=== PATIENT | female | born 1940 | race Caucasian/White ===

== ENCOUNTER 2018-06-12 08:41 | Inpatient (IN) | payer OTHER ==
[2018-06-12] MEDS ORDERED: NA CHLORIDE 0.9% 2,000 ML ONE (09:14)
[2018-06-12] MEDS ORDERED: CEFTRIAXONE/SWI 1gm 1 GM/10 ML SYR ONE (09:22)
[2018-06-12] MEDS ORDERED: AZITHROMYCIN 500 MG/250 ML BAG ONE (09:22)
[2018-06-12] MEDS ORDERED: ACETAMINOPHEN 500 MG TAB ONE (09:22)
--- NOTE | 2018-06-12 09:27 | RAD REPORT ---
EXAM DESCRIPTION: Tiki Single View06/12/2018 9:08 am CLINICAL HISTORY: Shortness of breath COMPARISON: 2016 FINDINGS: Mild bibasilar interstitial lung opacities are seen. Upper lobes appear clear. The heart is normal size IMPRESSION: Mild bibasilar interstitial lung opacities may indicate an atypical pneumonia
[2018-06-12 09:34] LABS: Absolute Lymphocytes (CBC) 0.6 K/uL (0.7-4.9); Absolute Monocytes 0.4 K/uL (0.1-1.3); Absolute Neutrophil 9.2 K/uL (1.8-8.0); Basophils % 0.1 % (0-1.3); Eosinophils % 0.2 % (0-4.4); Hematocrit 35.8 % (36.0-45.0); MCH 28.4 pg (27.0-35.0); MCV 83.4 fL (80-100); MPV 7.6 fL (7.6-11.3); Protime INR 1.35; RBC Red Blood Cell Count 4.29 M/uL (3.86-4.86)
[2018-06-12 09:47] LABS: Urine Blood 2+ (NEG); Urine Glucose NEGATIVE (NEG); Urine Protein 3+ (NEG); Urine Specific Gravity >1.030 (1.005-1.030)
[2018-06-12 09:55] LABS: Blood Morphology Comment NOT SEEN (NOT SEEN); Platelet Estimate ADEQ; Urine White Blood Cell Casts OK
[2018-06-12 10:06] LABS: Albumin 3.2 g/dL (3.4-5.0); Bilirubin Direct 0.1 mg/dL (0-0.2); Bilirubin Total 0.5 mg/dL (0.2-1.0); Potassium 3.6 mmol/L (3.5-5.1); Protein, Total 8.6 g/dL (6.4-8.2)
[2018-06-12 10:08] LABS: Troponin (Emerg Dept Use Only) 0.78 ng/mL (0.0-0.045)
[2018-06-12 10:11] LABS: Urine Bacteria LOADED /HPF (<20); Urine RBC 20-50 /HPF (NONE SEEN)
[2018-06-12 10:12] LABS: Urine Culture Reflex Order NOT NEEDED
[2018-06-12] MEDS ORDERED: ENOXAPARIN 80 MG/0.8 ML SQ ONE (10:29)
[2018-06-12] MEDS ORDERED: ASPIRIN 81 MG CHEWABLE TABLET ONE (10:29)
[2018-06-12] MEDS ORDERED: ONDANSETRON 4 MG/2 ML VIAL ONE (10:29)
--- NOTE | 2018-06-12 10:33 | EDPHYS ---
Physician Documentation [facility] Name: Roula Jefferson Age: 77 yrs Sex: Female : 1940 Arrival Date: 06/12/2018 Time: 08:45 Bed 6 Private MD: Chris Moeller V ED Physician Matthew Lewis HPI: 06/12 10:21 This 77 yrs old Female presents to ER via Wheelchair with complaints of Fever.jr8 10:21 The patient reports fever, with an emergency department temperature of 101.4 degrees jr8 Fahrenheit. Onset: The symptoms/episode began/occurred acutely, today. Modifying factors: there are no obvious modifying factors. Associated signs and symptoms: Pertinent positives: altered mental status,\E\. Severity of symptoms: At their worst the symptoms were moderate. The patient has not experienced similar symptoms in the past. The patient has not recently seen a physician. 10:29 Family stated that they noticed that patient was not making sense this morning. Checked jr8 her temperature because she felt hot in which they found that she had a temperature . Historical: - Allergies: 09:12 Sulfa (Sulfonamide Antibiotics); la1 09:12 PENICILLINS; la1 - PMHx: 09:12 Hypertension; la1 - Immunization history:: Pneumococcal vaccine is not up to date, Flu vaccine is not up to date. - Social history:: Smoking status: Patient/guardian denies using tobacco. - Ebola Screening: : No symptoms or risks identified at this time. ROS: 10:29 Constitutional: Positive for body aches, chills, fever. jr8 10:29 Neuro: Positive for altered mental status. 10:29 All other systems are negative. Exam: 10:29 Eyes: Pupils equal round and reactive to light, extra-ocular motions intact. Lids and jr8 lashes normal. Conjunctiva and sclera are non-icteric and not injected. Cornea within normal limits. Periorbital areas with no swelling, redness, or edema. ENT: Nares patent. No nasal discharge, no septal abnormalities noted. Tympanic membranes are normal and external auditory canals are clear. Oropharynx with no redness, swelling, or masses, exudates, or evidence of obstruction, uvula midline. Mucous membranes moist. Neck: Trachea midline, no thyromegaly or masses palpated, and no cervical lymphadenopathy. Supple, full range of motion without nuchal rigidity, or vertebral point tenderness. No Meningismus. Respiratory: Lungs have equal breath sounds bilaterally, clear to auscultation and percussion. No rales, rhonchi or wheezes noted. No increased work of breathing, no retractions or nasal flaring. Abdomen/GI: Soft, non-tender, with normal bowel sounds. No distension or tympany. No guarding or rebound. No evidence of tenderness throughout. Back: No spinal tenderness. No costovertebral tenderness. Full range of motion. Skin: Warm, dry with normal turgor. Normal color with no rashes, no lesions, and no evidence of cellulitis. MS/ Extremity: Pulses equal, no cyanosis. Neurovascular intact. Full, normal range of motion. Neuro: Awake and alert, GCS 15, oriented to person, place, time, and situation. Cranial nerves II-XII grossly intact. Motor strength 5/5 in all extremities. Sensory grossly intact. Cerebellar exam normal. Normal gait. No altered mentation at this time 10:29 Cardiovascular: Rate: tachycardic, Rhythm: regular, Pulses: Pulses are 2+ in right radial artery and left radial artery. Heart sounds: normal, Edema: is not appreciated. Vital Signs: 08:52 BP 148 / 82; Pulse 126; Resp 20 S; Temp 101.4(O); Pulse Ox 92% on R/A; Weight 79.38 kg bp (R); Height 5 ft. 5 in. (165.10 cm) (R); Pain 9/10; 09:25 BP 114 / 76; Pulse 120; Resp 18; Pulse Ox 95% on R/A; la1 10:20 BP 128 / 85; Pulse 106; Resp 20; Temp 98.9(O); Pulse Ox 95% on R/A; la1 10:55 BP 123 / 82; Pulse 104; Resp 16; Pulse Ox 96% on R/A; la1 11:01 Pulse Ox 89% on R/A; la1 12:06 BP 114 / 86; Pulse 93; Resp 16; Pulse Ox 98% on 2 lpm NC; la1 08:52 Body Mass Index 29.12 (79.38 kg, 165.10 cm) bp MDM: 08:46 Patient medically screened. jr8 10:29 Data reviewed: vital signs, nurses notes, lab test result(s), EKG, radiologic studies, [facility] plain films. Data interpreted: Pulse oximetry: on room air is 95 %. Interpretation: normal. Counseling: I had a detailed discussion with the patient and/or guardian regarding: the historical points, exam findings, and any diagnostic results supporting the discharge/admit diagnosis, lab results, radiology results, the need for further work-up and treatment in the hospital. 06/12 08:52 Order name: Urine Culture 06/12 08:52 Order name: Basic Metabolic Panel; Complete Time: 10:14 06/12 08:52 Order name: Blood Culture Adult (2) [facility] 06/12 08:52 Order name: CBC with Diff; Complete Time: 10:05 06/12 08:52 Order name: Lactate; Complete Time: 10:14 06/12 08:52 Order name: LFT's; Complete Time: 10:14 [facility] 06/12 08:52 Order name: Lipase; Complete Time: 10:14 [facility] 06/12 08:52 Order name: Procalcitonin; Complete Time: 10:05 06/12 08:52 Order name: Protime (+inr); Complete Time: 09:47 06/12 08:52 Order name: Troponin (emerg Dept Use Only); Complete Time: 10:14 [facility] 06/12 08:52 Order name: Urine Microscopic Only; Complete Time: 10:14 [facility] 06/12 08:52 Order name: Flu; Complete Time: 09:47 8 06/12 09:41 Order name: CBC Smear Scan; Complete Time: 10:05 EDMS 06/12 09:44 Order name: Urine Dipstick--Ancillary (enter results); Complete Time: 09:47 bd 06/12 08:52 Order name: Cath; Complete Time: 09:41 8 06/12 08:52 Order name: Chest Single View XRAY; Complete Time: 09:28 8 06/12 08:52 Order name: Accucheck; Complete Time: 09:05 8 06/12 08:52 Order name: Cardiac monitoring; Complete Time: 09:05 8 06/12 08:52 Order name: EKG - Nurse/Tech; Complete Time: 09:16 06/12 08:52 Order name: IV Saline Lock - Large Bore; Complete Time: 09:05 06/12 08:52 Order name: Labs collected and sent; Complete Time: 09:06/12 08:52 Order name: O2 Per Protocol; Complete Time: 09:06/12 11:07 Order name: CONS Physician Consult EDKS 06/12 08:52 Order name: O2 Sat Monitoring; Complete Time: 09:06/12 08:52 Order name: Urine Dipstick-Ancillary (obtain specimen); Complete Time: 09: Administered Medications: 09: Drug: NS 0.9% (30 ml/kg) 30 ml/kg Route: IV; Rate: bolus; Site: right forearm; la1 10:58 Follow up: IV Status: Completed infusion la1 09:25 Drug: Rocephin 1 grams Route: IV; Rate: calculated rate; Site: right forearm; la1 10:58 Follow up: IV Status: Completed infusion la1 09:25 Drug: Zithromax 500 mg Route: IVPB; Infused Over: 1 hrs; Site: right forearm; la1 10:58 Follow up: IV Status: Completed infusion la1 09:25 Drug: Tylenol 1000 mg Route: PO; la1 10:58 Follow up: Response: No adverse reaction; Temperature is decreased la1 10:29 Drug: Zofran 4 mg Route: IVP; Site: right forearm; la1 10:56 Follow up: Response: No adverse reaction; Nausea is decreased la1 10:31 Drug: Aspirin Chewable Tablet 324 mg Route: PO; la1 10:57 Follow up: Response: No adverse reaction la1 10:31 Drug: Lovenox 1 mg/kg Route: Sub-Q; Site: left lower abdomen; la1 10:56 Follow up: Response: No adverse reaction la1 Disposition: 06/12/18 10:32 Hospitalization ordered by Chris Moeller for Inpatient Admission. Preliminary diagnosis are Pneumonia due to other specified bacteria, Urinary tract infection, site not specified, Sepsis. - Bed requested for Telemetry/MedSurg (Inpatient). - Status is Inpatient Admission. la1 - Condition is Stable. - Problem is new. - Symptoms have improved. UTI on Admission? Yes Addendum: 06/20/2018 11:32 Co-signature as Attending Physician, Matthew Lewis MD. g s Signatures: Dispatcher [employer] EDKS Rubina Altamirano, RN RN dw Mignon Park, RN RN aa5 Jordan Pompa PA PA jr8 Shorty Dexter RN RN la1 Matthew Lewis MD MD Corrections: (The following items were deleted from the chart) 06/12 11:30 10:32 Hospitalization Ordered by Chris Moeller MD for Inpatient Admission. Preliminary dw diagnosis is Pneumonia due to other specified bacteria; Urinary tract infection, site not specified; Sepsis. Bed requested for Telemetry/MedSurg (Inpatient). Status is Inpatient Admission. Condition is Stable. Problem is new. Symptoms have improved. UTI on Admission? Yes. jr8 12:06 11:30 06/12/2018 10:32 Hospitalization Ordered by Chris Moeller MD for Inpatient la1 Admission. Preliminary diagnosis is Pneumonia due to other specified bacteria; Urinary tract infection, site not specified; Sepsis. Bed requested for Telemetry/MedSurg (Inpatient). Status is Inpatient Admission. Condition is Stable. Problem is new. Symptoms have improved. UTI on Admission? Yes. dw
--- NOTE | 2018-06-12 10:33 | ER ---
Nurse's Notes [facility] Name: Rolua Jefferson Age: 77 yrs Sex: Female : 1940 Arrival Date: 06/12/2018 Time: 08:45 Bed 6 Private MD: Chris Moeller V Diagnosis: Pneumonia due to other specified bacteria;Urinary tract infection, site not specified;Sepsis Presentation: 06/12 08:51 Presenting complaint: Patient states: cough that began Wednesday and body aches. Reports aa5 fever today. Transition of care: patient was not received from another setting of care. Onset of symptoms was May 2018. Risk Assessment: Do you want to hurt yourself or someone else? Patient reports no desire to harm self or others. Care prior to arrival: None. 08:51 Method Of Arrival: Wheelchair aa5 08:51 Acuity: BROOK 3 aa5 08:51 Initial Sepsis Screen: Does the patient meet any 2 criteria? RR > 20 per min. Temp bp <36.0*C (96.8*F)) or > 38.3*C (100.9*F). HR > 90 bpm. Yes Does the patient have a suspected source of infection? Yes: Productive cough/pneumonia If YES to both, name of provider notified: Jordan HALL 09:06 Acuity: BROOK 2 la1 Triage Assessment: 09:00 General: Appears distressed, uncomfortable, Behavior is cooperative, anxious, restless. bp Pain: Complains of pain in GENERALIZED. Historical: - Allergies: 09:12 Sulfa (Sulfonamide Antibiotics); la1 09:12 PENICILLINS; la1 - PMHx: 09:12 Hypertension; la1 - Immunization history:: Pneumococcal vaccine is not up to date, Flu vaccine is not up to date. - Social history:: Smoking status: Patient/guardian denies using tobacco. - Ebola Screening: : No symptoms or risks identified at this time. Screenin:59 Abuse screen: Denies threats or abuse. Denies injuries from another. Nutritional bp screening: No deficits noted. Tuberculosis screening: No symptoms or risk factors identified. Fall Risk None identified. Assessment: 09:03 General: Appears in no apparent distress. Behavior is cooperative. Pain: Complains of la1 pain in body aches all over. Neuro: Level of Consciousness is awake, alert, obeys commands, Oriented to person, place, time, situation, Speech is normal, Facial symmetry appears normal, Pupils are PERRLA. Cardiovascular: Heart tones S1 S2 present Patient's skin is warm and dry. Rhythm is sinus tachycardia Chest pain is denied. Respiratory: Airway is patent Respiratory effort is even, unlabored, Respiratory pattern is regular, symmetrical, Breath sounds are coarse bilaterally. GI: Abdomen is non-distended, obese, Bowel sounds present X 4 quads. Abd is soft and non tender X 4 quads. : No signs and/or symptoms were reported regarding the genitourinary system. Vital Signs: 08:52 BP 148 / 82; Pulse 126; Resp 20 S; Temp 101.4(O); Pulse Ox 92% on R/A; Weight 79.38 kg bp (R); Height 5 ft. 5 in. (165.10 cm) (R); Pain 9/10; 09:25 BP 114 / 76; Pulse 120; Resp 18; Pulse Ox 95% on R/A; la1 10:20 BP 128 / 85; Pulse 106; Resp 20; Temp 98.9(O); Pulse Ox 95% on R/A; la1 10:55 BP 123 / 82; Pulse 104; Resp 16; Pulse Ox 96% on R/A; la1 11:01 Pulse Ox 89% on R/A; la1 12:06 BP 114 / 86; Pulse 93; Resp 16; Pulse Ox 98% on 2 lpm NC; la1 08:52 Body Mass Index 29.12 (79.38 kg, 165.10 cm) bp ED Course: 08:45 Patient arrived in ED. mr 08:45 Chris Moeller MD is Private Physician. mr 08:45 Germán Alcala, RASHID is Primary Nurse. bp 08:46 Jordan Pompa PA is PHCP. jr8 08:46 Matthew Lewis MD is Attending Physician. jr8 08:50 Arm band placed on. aa5 08:51 Triage completed. aa5 08:55 Flu and/or RSV swab sent to lab. Inserted saline lock: 20 gauge in right antecubital bp area, using aseptic technique. Blood collected. 08:59 Patient has correct armband on for positive identification. Bed in low position. Call bp light in reach. Side rails up X2. Adult w/ patient. 09:05 X-ray completed. Portable x-ray completed in exam room. Patient tolerated procedure ag1 well. 09:07 Chest Single View XRAY In Process Unspecified. EDMS 09:16 EKG done, by ED staff, reviewed by Jordan HALL. jb1 09:55 Urine collected: straight cath specimen, cloudy, halie colored. jb1 10:31 Chris Moeller MD is Hospitalizing Provider. jr8 12:06 No provider procedures requiring assistance completed. Patient admitted, IV remains in la1 place. Administered Medications: 09: Drug: NS 0.9% (30 ml/kg) 30 ml/kg Route: IV; Rate: bolus; Site: right forearm; la1 10:58 Follow up: IV Status: Completed infusion la1 09:25 Drug: Rocephin 1 grams Route: IV; Rate: calculated rate; Site: right forearm; la1 10:58 Follow up: IV Status: Completed infusion la1 09:25 Drug: Zithromax 500 mg Route: IVPB; Infused Over: 1 hrs; Site: right forearm; la1 10:58 Follow up: IV Status: Completed infusion la1 09:25 Drug: Tylenol 1000 mg Route: PO; la1 10:58 Follow up: Response: No adverse reaction; Temperature is decreased la1 10:29 Drug: Zofran 4 mg Route: IVP; Site: right forearm; la1 10:56 Follow up: Response: No adverse reaction; Nausea is decreased la1 10:31 Drug: Aspirin Chewable Tablet 324 mg Route: PO; la1 10:57 Follow up: Response: No adverse reaction la1 10:31 Drug: Lovenox 1 mg/kg Route: Sub-Q; Site: left lower abdomen; la1 10:56 Follow up: Response: No adverse reaction la1 Outcome: 10:32 Decision to Hospitalize by Provider. jr8 12:06 Admitted to Tele accompanied by tech, via stretcher, room 424, [facility] 12:06 Condition: stable 12:06 Instructed on the need for admit. 12:06 Patient left the ED. wy1 Signatures: Dispatcher [employer] EDMS Regulo Muse jb1 Roula Cast mr Mignon Park, RN RN aa5 Jordan Pompa PA PA jr8 Shorty Dexter, RN RN la1 Jessi Garcia ag1 Germán Alcala, RN RN bp Corrections: (The following items were deleted from the chart) 09:02 08:52 Pulse 126bpm; Resp 20bpm; Spontaneous; Pulse Ox 92% RA; Temp 101.4F Oral; 79.38 bp kg Reported; Height 5 ft. 5 in. Reported; BMI: 29.1; Pain 9/10; aa5
[2018-06-12] MEDS ORDERED: ALBUTEROL 2.5 MG/3 ML NEB SOL NEB PRN (12:36)
[2018-06-12] MEDS ORDERED: MORPHINE 4 MG/ML SYR IV PRN (12:36)
[2018-06-12] MEDS ORDERED: IPRATROPIUM BROM 0.5MG/2.5ML NEB PRN (12:36)
[2018-06-12] MEDS ORDERED: ONDANSETRON 4 MG/2 ML VIAL IV PRN (12:36)
[2018-06-12 13:03] VITALS: BMI 29.1
[2018-06-12] MEDS: NA CHLORIDE 0.9% 1,000 ML IV SCH (13:50)
[2018-06-12] MEDS: ACETAMINOPHEN 500 MG TAB PO PRN (21:20)
[2018-06-12] MEDS: ENOXAPARIN 80 MG/0.8 ML SQ SCH (21:20)
[2018-06-12] MEDS: CEFTRIAXONE/SWI 1gm 1 GM/10 ML SYR IV SCH (21:21)
--- NOTE | 2018-06-12 22:00 | P.HP ---
Certification for Inpatient Patient admitted to: Inpatient With expected LOS: >2 Midnights Practitioner: I am a practitioner with admitting privileges, knowledge of patient current condition, hospital course, and medical plan of care. Services: Services provided to patient in accordance with Admission requirements found in Title 42 Section 412.3 of the Code of Federal Regulations Patient History Date of Service: 06/12/18 Reason for admission: DRY COUGH, LOW GRADE FEVER History of Present Illness: MS. MELENDEZ CAME WITH COUGH, THAT IS DRY, FAILED TO IMPROVE ON Z-CAITY SHE HAD CALLED FOR TWO DAYS AGO. SHE SAID SHE HAD 105 FEVER BUT I SUSPECT IT WAS 100.5 DEGREE. ER PA DID TROPONIN FOR THIS SYMPTOM WITHOUT CHEST PAIN OR ANY CARDIAC ISSUES. UNFORTUNATELY IT IS HIGH AHD SHE IS IN THE HOSPITAL. I SUSPECT SHE STILL HAS NO CORONARY SYMPTOMS. DR Rik HERNANDEZ SAW HER. Allergies penicillin G Allergy (Verified 11/27/15 16:53) Itching/Hives/Rash Sulfa (Sulfonamide Antibiotics) Allergy (Verified 11/27/15 16:53) Itching/Hives/Rash Home Medications: Carvedilol [Coreg*] 12.5 mg PO BID 11/27/15 Cyclobenzaprine [Flexeril*] 10 mg PO TID PRN 11/27/15 Gabapentin [Neurontin] 600 mg PO TID 11/27/15 Hydralazine [Apresoline*] 50 mg PO BID 11/27/15 Losartan/Hydrochlorothiazide [Hyzaar 100-12.5 Tablet] 1 each PO DAILY 11/27/15 Magnesium Oxide [Mag 0X*] 400 mg PO DAILY 11/27/15 Mirtazapine [Remeron*] 15 mg PO BEDTIME 11/27/15 Trazodone [Desyrel*] 100 mg PO BEDTIME 11/27/15 traMADol HCL [Ultram*] 50 mg PO TID 11/27/15 - Past Medical/Surgical History Has patient received pneumonia vaccine in the past: Yes Diabetic: No -: chronic pain siatic & back - Dr Lim -: HTN -: constipation -: arthritis -: poor balance due to pain -: '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 moist/pink, EOMI, Sclerae nonicteric Neck: Supple, 2+ carotid pulse no bruit, No LAD, Without JVD or thyroid abnormality Respiratory: Diminished Cardiovascular: Regular rate/rhythm, Normal S1 S2 Gastrointestinal: Normal bowel sounds, No tenderness Musculoskeletal: No tenderness Integumentary: No rashes Neurological: Normal gait, Normal speech, Normal strength at 5/5 x4 extr, Normal tone, Normal affect Lymphatics: No axilla or inguinal lymphadenopathy - Studies Laboratory Data (last 24 hrs) 06/12/18 08:58: PT 16.0 H, INR 1.35 06/12/18 08:58: WBC 10.2, Hgb 12.2, Hct 35.8 L, Plt Count 266 06/12/18 08:58: Sodium 133 L, Potassium 3.6, BUN 12, Creatinine 0.70, Glucose 178 H, Total Bilirubin 0.5, AST 13 L, ALT 19, Alkaline Phosphatase 81, Lipase 102 Microbiology Data (last 24 hrs): 06/12/18 08:58 Nasopharnyx Influenza Type A Antigen Screen - Final 06/12/18 08:58 Nasopharnyx Influenza Type B Antigen Screen - Final Assessment and Plan - Problems (Diagnosis) (1) Atypical pneumonia Current Visit: Yes Status: Acute Plan: IV ROCEPHIN AND ZITHROMAX SHOULD BE ENOUGH WBC IS NORMAL SHE HAS NO SPUTUM. (2) Elevated troponin I level Current Visit: Yes Status: Acute Plan: THIS CAN BE FROM CARDIAC STRESS FROM PNEUMONIA. MAY DO ST TEST LATER. EKG -SINUS TACH. WITH NO ST T CHANGES. - Advance Directives Does patient have a Living Will: No Does patient have a Durable POA for Healthcare: No
[2018-06-13] MEDS: NA CHLORIDE 0.9% 1,000 ML IV SCH ×2 (00:04→09:09)
[2018-06-13] MEDS: TRAMADOL HCL 50 MG TAB PO SCH ×4 (02:31→21:04)
--- NOTE | 2018-06-13 02:55 | CON ---
Date of Consultation: 06/12/[address] Moeller on 06/12/2018. I saw the patient on 06/12/2018. Reason For Consultation: Elevated troponin. History Of Present Illness: Ms. Jefferson is a 77-year-old woman. She came in with sepsis, pneumonia, UTI, fever. Fever was her main complaint. No cardiac symptoms reported. Denied chest pain, nausea, vomiting, diaphoresis, PND, orthopnea, pedal edema, palpitations, or syncope. Troponins were 0.38 a nd 0.94. I do not know why her troponin was drawn. Past Medical History: Includes hypertension. Allergies: INCLUDE SULFA AND PENICILLIN. Medications: Include Coreg, Neurontin, Flexeril, Hyzaar, magnesium, hydralazine, Desyrel, and Ultram as well as Remeron. Review of Systems: Negative. Social History: Negative. Family History: Positive for heart disease. Physical Examination: Vital Signs: Stable. She is afebrile. By the time I saw her, she was feeling good. No complaint. Very alert and oriented. HEENT: Negative. Neck: Supple. No bruit. Chest: Clear to auscultation and percussion. Cardiac: Revealed a regular rhythm and rate without any murmurs, gallops, or rubs. Abdomen: Benign. Extremities: Revealed no clubbing, cyanosis, or edema. Diagnostic Data: Troponins were 0.38 and 0.94. She had a UTI. Chest x-ray showing atypical pneumon ia. Rest of the blood work was negative. Impression And Plan: 1.Elevated troponin, most likely secondary to sepsis. 2.Hypertension, well controlled. 3.Atypical pneumonia. 4.Urinary tract infection. I do not think Ms. Jefferson needs any cardiac workup, whatsoever. She has no cardiac symptoms. She lopez s no clinical findings by examination of congestive heart failure. I think she needs to be treated w ith antibiotics as is being done. We will follow her on an as-needed basis. NATHANAEL/SUNNI Voice ID: [id number] Report ID: [id number]
[2018-06-13 04:24] LABS: Absolute Lymphocytes (CBC) 1.7 K/uL (0.7-4.9); Absolute Monocytes 0.9 K/uL (0.1-1.3); Absolute Neutrophil 7.8 K/uL (1.8-8.0); Basophils % 0.1 % (0-1.3); Eosinophils % 0.7 % (0-4.4); Hematocrit 27.1 % (36.0-45.0); Lymphocytes % 15.9 % (15.3-44.8); MCH 29.5 pg (27.0-35.0); MCV 83.2 fL (80-100); MPV 7.9 fL (7.6-11.3); Monocytes % 8.2 % (3.3-12.3); RBC Red Blood Cell Count 3.26 M/uL (3.86-4.86)
[2018-06-13 04:39] LABS: BUN Blood Urea Nitrogen 10 mg/dL (7-18); Bicarbonate 25 mmol/L (21-32); Glucose Level 101 mg/dL (74-106); NT PRO-BNP 4994 pg/mL (<450); Potassium 3.5 mmol/L (3.5-5.1); Sodium Level 140 mmol/L (136-145)
[2018-06-13] MEDS ORDERED: AZITHROMYCIN IV 250 MG in NA CHLORIDE 0.9% 250 ML IVPB SCH (09:00)
[2018-06-13] MEDS: GABAPENTIN 300 MG CAP PO SCH ×3 (09:05→21:03)
[2018-06-13] MEDS: ACETAMINOPHEN 500 MG TAB PO PRN (09:05)
[2018-06-13] MEDS: CARVEDILOL 12.5 MG TAB PO SCH ×2 (09:06→21:01)
[2018-06-13] MEDS: ASPIRIN 81 MG CHEWABLE TABLET PO SCH (09:07)
[2018-06-13] MEDS: ENOXAPARIN 80 MG/0.8 ML SQ SCH (09:07)
[2018-06-13] MEDS: CEFTRIAXONE/SWI 1gm 1 GM/10 ML SYR IV SCH (09:09)
--- NOTE | 2018-06-13 09:09 | EKG ---
Test Date: 2018-06-12 Test Time: 09:10:24 Um Specialist: LISET MEASUREMENT RESULTS: Intervals: Rate: 122 GA: 158 QRSD: 82 QT: 296 QTc: 421 [place]: P: 16 GA: 158 QRS: 40 T: 58 INTERPRETIVE STATEMENTS: Sinus tachycardia Nonspecific ST and T wave abnormality Abnormal ECG Compared to ECG 11/27/2015 17:57:34 ST (T wave) deviation now present Sinus rhythm no longer present Atrial premature complex(es) no longer present Myocardial infarct finding no longer present Electronically Signed On 06-13-18 09:08:31 CDT by Nabeel Richmond
[2018-06-13] MEDS: MAGNESIUM OXIDE 400 MG TAB PO SCH (09:11)
[2018-06-13] MEDS: GUAIFENESIN/DM 5 ML UCUP PO PRN (15:25)
[2018-06-13] MEDS ORDERED: CYCLOBENZAPRINE 10 MG TAB PO PRN (17:31)
[2018-06-13] MEDS: FUROSEMIDE 40 MG/4 ML VIAL IV SCH (17:45)
--- NOTE | 2018-06-13 17:51 | P.PN ---
Subjective Date of Service: 06/13/18 Chief Complaint: THIS AM WAS OKAY , ABOUT 5 PM GOT DYSPNEA. Subjective: Worsening COUGH, CONGESTION. Review of Systems 10-point ROS is otherwise unremarkable General: Weakness, Malaise Respiratory: Shortness of Breath Physical Examination - Vital Signs Temperature: 99.3 F Blood Pressure: 161/101 Pulse: 121 Respirations: 18 Pulse Ox (%): 95 - Physical Exam General: Alert, Moderate distress HEENT: Atraumatic, PERRLA, EOMI Neck: Supple, JVD not distended Respiratory: Clear to auscultation bilaterally, Normal air movement Cardiovascular: No edema, Normal pulses Gastrointestinal: Normal bowel sounds, No tenderness Musculoskeletal: No tenderness Integumentary: No rashes Neurological: Normal speech, Normal tone, Normal affect Lymphatics: No axilla or inguinal lymphadenopathy - Studies Medications List Reviewed: Yes Assessment And Plan - Current Problems (Diagnosis) (1) Atypical pneumonia Onset Date: 06/13/18 Current Visit: Yes Status: Acute Plan: IV ROCEPHIN AND ZITHROMAX SHOULD BE ENOUGH WBC IS NORMAL SHE HAS NO SPUTUM. CHANGE TO LEVAQUIN (2) Elevated troponin I level Onset Date: 06/13/18 Current Visit: Yes Status: Acute Plan: THIS CAN BE FROM CARDIAC STRESS FROM PNEUMONIA. MAY DO ST TEST LATER. EKG -SINUS TACH. WITH NO ST T CHANGES. (3) Dyspnea Onset Date: 11/28/15 Current Visit: No Status: Acute Plan: CHF. STOP FLUIDS CXR STAT EKG STAT LASIX IV STAT BID. LOVENOX SC DAILY. Qualifiers: Dyspnea type: other forms of dyspnea Qualified Code(s): R06.09 - Other forms of dyspnea (4) A-fib Current Visit: Yes Status: Acute Plan: ON B ALTHEA ALREADY NOT GIVEN BETAPACE SHE IS ON LEVAQUIN. START DIGOXIN IV AND ELIQUIS PO BID. Qualifiers: Atrial fibrillation type: paroxysmal Qualified Code(s): I48.0 - Paroxysmal atrial fibrillation
[2018-06-13] MEDS: LOSARTAN/HCTZ 50-12.5 PO SCH (17:59)
[2018-06-13] MEDS ORDERED: ENOXAPARIN 40 MG/0.4 ML SQ SCH (18:30)
[2018-06-13] MEDS ORDERED: FUROSEMIDE 40 MG/4 ML VIAL IV ONE (18:50)
[2018-06-13] MEDS: Levofloxacin500mg IV 500 MG/100 ML BAG IV SCH (18:56)
--- NOTE | 2018-06-13 19:54 | RAD REPORT ---
EXAM DESCRIPTION: RAD - Chest Single View - 06/13/2018 7:04 pm CLINICAL HISTORY: Shortness of breath COMPARISON: June 12 TECHNIQUE: AP portable chest image was obtained 1851 hours . FINDINGS: Lung volumes are diminished compared to the prior study. Bilateral upper lung field opacif ication has developed. There is patchy opacification in each lower lung field as well. Bilateral cost ophrenic angle blunting present. Heart size magnified by portable technique and shallow inspiration. No pneumothorax. Trachea is midline. No acute bony abnormality seen. No acute aortic findings suspect ed. IMPRESSION: Overall increase in interstitial markings throughout the lung kaplan. Focal airspace opa cification present in each upper lobe. Findings are suspicious for bilateral upper lobe pneumonia. Atypical presentation of failure or volum e overload possible as well.
[2018-06-13] MEDS: TRAZODONE 50 MG TABLET PO SCH (21:02)
[2018-06-13] MEDS: HYDRALAZINE HCL 25 MG TABLET PO SCH (21:02)
[2018-06-13] MEDS: MIRTAZAPINE 15 MG TAB PO SCH (21:04)
[2018-06-13] MEDS ORDERED: DIGOXIN 0.25 MG/ML AMP IV ONE (21:15)
[2018-06-13] MEDS: POTASSIUM CL SA 10 MEQ TAB PO SCH (21:41)
[2018-06-14] MEDS ORDERED: METOPROLOL TAR 25 MG TAB PO SCH (06:00)
[2018-06-14 06:44] LABS: Absolute Lymphocytes (CBC) 2.2 K/uL (0.7-4.9); Absolute Monocytes 0.8 K/uL (0.1-1.3); Absolute Neutrophil 8.4 K/uL (1.8-8.0); Basophils % 0.4 % (0-1.3); Eosinophils % 0.1 % (0-4.4); Hematocrit 30.9 % (36.0-45.0); Lymphocytes % 19.1 % (15.3-44.8); MCH 28.2 pg (27.0-35.0); MCV 82.9 fL (80-100); MPV 7.8 fL (7.6-11.3); Monocytes % 7.3 % (3.3-12.3); RBC Red Blood Cell Count 3.72 M/uL (3.86-4.86)
--- NOTE | 2018-06-14 07:00 | EKG ---
Test Date: 2018-06-13 Test Time: 17:37:25 Uniform Designer: SAFIA MEASUREMENT RESULTS: Intervals: Rate: 109 OR: 140 QRSD: 86 QT: 336 QTc: 452 [place]: P: 28 OR: 140 QRS: 47 T: 22 INTERPRETIVE STATEMENTS: Sinus tachycardia Otherwise normal ECG Compared to ECG 06/12/2018 09:10:24 ST (T wave) deviation no longer present Electronically Signed On 06-14-18 06:59:42 CDT by Nabeel Richmond
[2018-06-14 07:03] LABS: BUN Blood Urea Nitrogen 9 mg/dL (7-18); Bicarbonate 26 mmol/L (21-32); Glucose Level 104 mg/dL (74-106); Potassium 3.3 mmol/L (3.5-5.1); Sodium Level 133 mmol/L (136-145)
[2018-06-14] MEDS ORDERED: METOPROLOL TAR 25 MG TAB PO ONE (07:30)
[2018-06-14] MEDS ORDERED: HYDROCHLOROTHIAZIDE PO SCH (09:00)
[2018-06-14] MEDS ORDERED: LOSARTAN POTASSIUM 50 MG TABLET PO SCH (09:00)
[2018-06-14] MEDS ORDERED: LOSARTAN PO SCH (09:00)
[2018-06-14] MEDS: GUAIFENESIN/DM 5 ML UCUP PO PRN ×2 (10:14→17:08)
[2018-06-14] MEDS: FUROSEMIDE 40 MG/4 ML VIAL IV SCH ×2 (10:14→17:09)
[2018-06-14] MEDS: LOSARTAN/HCTZ 50-12.5 PO SCH (10:15)
[2018-06-14] MEDS: MAGNESIUM OXIDE 400 MG TAB PO SCH (10:15)
[2018-06-14] MEDS: HYDRALAZINE HCL 25 MG TABLET PO SCH ×2 (10:15→21:07)
[2018-06-14] MEDS: GABAPENTIN 300 MG CAP PO SCH ×3 (10:16→21:04)
[2018-06-14] MEDS: TRAMADOL HCL 50 MG TAB PO SCH ×3 (10:16→21:06)
[2018-06-14] MEDS: APIXABAN 5 MG TABLET PO SCH ×2 (10:16→21:05)
[2018-06-14] MEDS: ASPIRIN 81 MG CHEWABLE TABLET PO SCH (10:16)
[2018-06-14] MEDS: POTASSIUM CL SA 10 MEQ TAB PO SCH ×2 (10:16→21:07)
--- NOTE | 2018-06-14 11:13 | ECHO ---
HEIGHT: 5 ft 5 in WEIGHT: 175 lb 0 oz DATE OF STUDY: 06/14/[address]: Chris Moeller MD 2-DIMENSIONAL: YES M.MODE: YES DOPPLER: YES COLOR FLOW: YES TDS: NO PORTABLE: NO DEFINITY: NO BUBBLE STUDY: NO DIAGNOSIS: EDEMA, DYSPNEA CARDIAC HISTORY: CATHERIZATION: NO SURGERY: NO PROSTHETIC VALVE: NO PACEMAKER: NO MEASUREMENTS (cm) DIASTOLIC (NORMALS) SYSTOLIC (NORMALS) IVSd 1.4 (0.6-1.2) LA Diam 3.3 (1.9-4.0) LVEF 66% LVIDd 3.1 (3.5-5.7) LVIDs 2.0 (2.0-3.5) %FS 35% LVPWd 1.2 (0.6-1.2) Ao Diam 2.3 (2.0-3.7) 2 DIMENSIONAL ASSESSMENT: RIGHT ATRIUM: NORMAL LEFT ATRIUM: NORMAL RIGHT VENTRICLE: NORMAL LEFT VENTRICLE: NORMAL TRICUSPID VALVE: NORMAL MITRAL VALVE: MITRAL ANNULAR CALCIFICATION PULMONIC VALVE: NORMAL AORTIC VALVE: SCLEROSIS PERICARDIAL EFFUSION: NONE AORTIC ROOT: NORMAL LEFT VENTRICULAR WALL MOTION: NORMAL DOPPLER/COLOR FLOW: MILD MITRAL AND TRICUSPID REGURGITATION. COMMENTS: MILD MITRAL AND TRICUSPID REGURGITATION. NORMAL LEFT VENTRICULAR SIZE AND FUNCTION. NORMAL LEFT ATRIAL SIZE. NO THROMBUS. MITRAL ANNULAR CALCIFICATION. AORTIC SCLEROSIS. TECHNOLOGIST: Chastity ROJAS
[2018-06-14] MEDS ORDERED: POTASSIUM CL SA 10 MEQ TAB PO ONE (12:56)
--- NOTE | 2018-06-14 13:06 | P.PN ---
Subjective Date of Service: 06/14/18 Chief Complaint: SHE IS LOT BETTER. Subjective: Improving COUGH, CONGESTION. I GAVE HER DIGOXIN, ELIQUIS FOR A FIB, RAPID SINCE YESTERDAY ALSO CHANGED FROM COREG TO METOPROLOL. SHE IS LOT BETTER THIS AM HER CHF HAS IMPROVED WITH IV LASIX BID. Review of Systems 10-point ROS is otherwise unremarkable General: Weakness, Malaise Respiratory: Shortness of Breath Physical Examination - Vital Signs Temperature: 97.9 F Blood Pressure: 130/70 Pulse: 91 Respirations: 18 Pulse Ox (%): 94 - Physical Exam General: Alert, Mild distress HEENT: Atraumatic, PERRLA, EOMI Neck: Supple, JVD not distended Respiratory: Diminished Cardiovascular: Regular rate/rhythm, Normal S1 S2 Gastrointestinal: Normal bowel sounds, No tenderness Musculoskeletal: No tenderness Integumentary: No rashes Neurological: Normal speech, Normal tone, Normal affect Lymphatics: No axilla or inguinal lymphadenopathy - Studies Microbiology Data (last 24 hrs): 06/12/18 09:40 Catheterized Urine [place] Count - Final BETWEEN 10,000 & 100,000 CFU/ML 06/12/18 09:40 Catheterized Urine - Final Klebsiella Pneumoniae Medications List Reviewed: Yes Assessment And Plan - Current Problems (Diagnosis) (1) Atypical pneumonia Onset Date: 06/13/18 Current Visit: Yes Status: Acute Plan: IV ROCEPHIN AND ZITHROMAX SHOULD BE ENOUGH WBC IS NORMAL SHE HAS NO SPUTUM. CHANGE TO LEVAQUIN LOW GRADE TEMP FU. (2) Elevated troponin I level Onset Date: 06/13/18 Current Visit: Yes Status: Acute Plan: THIS CAN BE FROM CARDIAC STRESS FROM PNEUMONIA. MAY DO ST TEST LATER. EKG -SINUS TACH. WITH NO ST T CHANGES. (3) Dyspnea Onset Date: 11/28/15 Current Visit: No Status: Acute Plan: CHF. STOP FLUIDS CXR STAT EKG STAT LASIX IV STAT BID. LOVENOX SC DAILY. Qualifiers: Dyspnea type: other forms of dyspnea Qualified Code(s): R06.09 - Other forms of dyspnea (4) A-fib Current Visit: Yes Status: Acute Plan: ON B ALTHEA ALREADY NOT GIVEN BETAPACE SHE IS ON LEVAQUIN. START DIGOXIN IV AND ELIQUIS PO BID. HR DOWN TO 90 NOW. RESUME MEDS. Qualifiers: Atrial fibrillation type: paroxysmal Qualified Code(s): I48.0 - Paroxysmal atrial fibrillation
--- NOTE | 2018-06-14 13:55 | EKG ---
Test Date: 2018-06-14 Test Time: 04:45:22 Community [employer] Manager: RT MEASUREMENT RESULTS: Intervals: Rate: 123 CA: QRSD: 82 QT: 342 QTc: 489 [place]: P: CA: QRS: 72 T: 33 INTERPRETIVE STATEMENTS: Atrial fibrillation with rapid ventricular response Nonspecific ST abnormality, probably digitalis effect Abnormal ECG Compared to ECG 06/13/2018 17:37:25 ST (T wave) deviation now present Sinus tachycardia no longer present Electronically Signed On 06-14-18 13:53:19 CDT by Manjeet Mahoney
--- NOTE | 2018-06-14 14:15 | PN ---
Date of Progress Note: 06/13/2018 Ms. Jefferson was admitted actually with fever, had elevated troponin, but no cardiac symptoms. No card iac workup was recommended. She was being treated with antibiotics, but throughout the daytime ended up having a short run of SVT, and then went into atrial fibrillation and then sinus tachycardia. Di goxin was given by Dr. Moeller. I started the patient on metoprolol 50 b.i.d. in addition to her Coreg 12.[address] Moeller started the patient on Eliquis. An echocardiogram was ordered. TSH was o rdered. NATHANAEL/SUNNI Voice ID: [id number] Report ID: [id number]
--- NOTE | 2018-06-14 14:21 | PN ---
Date of Progress Note: 06/14/2018 Ms. Jefferson was admitted with fever and elevated troponin. No cardiac symptoms initially, went into a trial fibrillation last night with a rate of about 130 to 140. She had been started on digoxin, meto prolol 50 b.i.d. She remains on Coreg 12.5 mg b.i.d. She is on Eliquis. An echocardiogram and a TS H are pending. She has some palpitations with her atrial fibrillation, but denied chest pain or shor tness of breath. She remains slightly febrile at 100.5. Antibiotics remain on board. We will see w hat her echo and TSH show today. We will may have to put her on Betapace 80 b.i.d. if this does not work. ANSELMO Voice ID: [id number] Report ID: [id number]
[2018-06-14] MEDS: Levofloxacin500mg IV 500 MG/100 ML BAG IV SCH (17:10)
[2018-06-14] MEDS: METOPROLOL TAR 25 MG TAB PO SCH (17:10)
[2018-06-14] MEDS: TRAZODONE 50 MG TABLET PO SCH (21:05)
[2018-06-14] MEDS: MIRTAZAPINE 15 MG TAB PO SCH (21:07)
[2018-06-15] MEDS: METOPROLOL TAR 25 MG TAB PO SCH ×2 (05:06→17:20)
[2018-06-15 06:00] LABS: Absolute Lymphocytes (CBC) 1.9 K/uL (0.7-4.9); Absolute Monocytes 0.9 K/uL (0.1-1.3); Absolute Neutrophil 4.5 K/uL (1.8-8.0); Basophils % 0.4 % (0-1.3); Eosinophils % 1.2 % (0-4.4); Hematocrit 30.8 % (36.0-45.0); Lymphocytes % 25.3 % (15.3-44.8); MCH 28.6 pg (27.0-35.0); MCV 82.4 fL (80-100); MPV 7.6 fL (7.6-11.3); Monocytes % 12.3 % (3.3-12.3); RBC Red Blood Cell Count 3.74 M/uL (3.86-4.86)
[2018-06-15 06:22] LABS: BUN Blood Urea Nitrogen 12 mg/dL (7-18); Bicarbonate 28 mmol/L (21-32); Glucose Level 106 mg/dL (74-106); Potassium 3.8 mmol/L (3.5-5.1); Sodium Level 133 mmol/L (136-145)
[2018-06-15] MEDS ORDERED: POTASSIUM CL SA 10 MEQ TAB PO ONE (06:30)
--- NOTE | 2018-06-15 07:49 | EKG ---
Test Date: 2018-06-14 Test Time: 16:53:47 Line Decorator: SAFIA MEASUREMENT RESULTS: Intervals: Rate: 88 [place]: QRSD: 82 QT: 400 QTc: 484 [place]: P: NH: QRS: 99 T: 56 INTERPRETIVE STATEMENTS: Sinus rhythm Rightward axis Prolonged QT Abnormal ECG Compared to ECG 06/14/2018 04:45:22 Right-axis deviation now present Prolonged QT interval now present Atrial fibrillation no longer present ST (T wave) deviation no longer present Electronically Signed On 06-15-18 07:49:03 CDT by Nabeel Richmond
[2018-06-15] MEDS: TRAMADOL HCL 50 MG TAB PO SCH ×3 (09:07→20:27)
[2018-06-15] MEDS: POTASSIUM CL SA 10 MEQ TAB PO SCH ×2 (09:07→20:26)
[2018-06-15] MEDS: ASPIRIN 81 MG CHEWABLE TABLET PO SCH (09:07)
[2018-06-15] MEDS: LOSARTAN/HCTZ 50-12.5 PO SCH (09:07)
[2018-06-15] MEDS: GABAPENTIN 300 MG CAP PO SCH ×3 (09:07→20:27)
[2018-06-15] MEDS: MAGNESIUM OXIDE 400 MG TAB PO SCH (09:07)
[2018-06-15] MEDS: APIXABAN 5 MG TABLET PO SCH ×2 (09:08→20:26)
[2018-06-15] MEDS: FUROSEMIDE 40 MG/4 ML VIAL IV SCH ×2 (09:08→17:26)
[2018-06-15] MEDS: GUAIFENESIN/DM 5 ML UCUP PO PRN ×2 (09:17→17:44)
[2018-06-15] MEDS: HYDRALAZINE HCL 25 MG TABLET PO SCH ×2 (09:20→20:26)
[2018-06-15] MEDS: Levofloxacin500mg IV 500 MG/100 ML BAG IV SCH (17:20)
[2018-06-15] MEDS: TRAZODONE 50 MG TABLET PO SCH (20:26)
[2018-06-15] MEDS: MIRTAZAPINE 15 MG TAB PO SCH (20:27)
--- NOTE | 2018-06-15 21:39 | P.PN ---
Subjective Date of Service: 06/15/18 Chief Complaint: SHE IS LOT BETTER. COUGH, CONGESTION. I GAVE HER DIGOXIN, ELIQUIS FOR A FIB, RAPID SINCE YESTERDAY ALSO CHANGED FROM COREG TO METOPROLOL. SHE IS LOT BETTER THIS AM HER CHF HAS IMPROVED WITH IV LASIX BID. IMPROVED, FEVER, DYSPNEA AND COUGH. Review of Systems 10-point ROS is otherwise unremarkable General: Weakness, Malaise Respiratory: Cough Physical Examination - Vital Signs Temperature: 99.3 F Blood Pressure: 150/65 Pulse: 93 Respirations: 20 Pulse Ox (%): 93 - Physical Exam General: Alert, Mild distress, Moderate distress HEENT: Atraumatic, PERRLA, EOMI Neck: Supple, JVD not distended Respiratory: Clear to auscultation bilaterally, Normal air movement Cardiovascular: Regular rate/rhythm, Normal S1 S2 Gastrointestinal: Normal bowel sounds, No tenderness Musculoskeletal: No tenderness Integumentary: No rashes Neurological: Normal speech, Normal tone, Normal affect Lymphatics: No axilla or inguinal lymphadenopathy - Studies Medications List Reviewed: Yes Assessment And Plan - Current Problems (Diagnosis) (1) Atypical pneumonia Onset Date: 06/13/18 Current Visit: Yes Status: Acute Plan: IV ROCEPHIN AND ZITHROMAX SHOULD BE ENOUGH WBC IS NORMAL SHE HAS NO SPUTUM. CHANGE TO LEVAQUIN LOW GRADE TEMP FU. ORAL ABX AT HOME IN AM. (2) Elevated troponin I level Onset Date: 06/13/18 Current Visit: Yes Status: Acute Plan: THIS CAN BE FROM CARDIAC STRESS FROM PNEUMONIA. MAY DO ST TEST LATER. EKG -SINUS TACH. WITH NO ST T CHANGES. (3) Dyspnea Onset Date: 11/28/15 Current Visit: No Status: Acute Plan: CHF. STOP FLUIDS CXR STAT EKG STAT LASIX IV STAT BID. LOVENOX SC DAILY. Qualifiers: Dyspnea type: other forms of dyspnea Qualified Code(s): R06.09 - Other forms of dyspnea (4) A-fib Current Visit: Yes Status: Acute Plan: ON B ALTHEA ALREADY NOT GIVEN BETAPACE SHE IS ON LEVAQUIN. START DIGOXIN IV AND ELIQUIS PO BID. HR DOWN TO 90 NOW. RESUME MEDS. CONT MEDS, ORAL BETABLOCKER, ELIQUIS AND LASIX.IV. Qualifiers: Atrial fibrillation type: paroxysmal Qualified Code(s): I48.0 - Paroxysmal atrial fibrillation
[2018-06-16] MEDS: METOPROLOL TAR 25 MG TAB PO SCH (05:59)
[2018-06-16 06:03] LABS: Potassium 4.2 mmol/L (3.5-5.1)
[2018-06-16 06:14] LABS: Absolute Lymphocytes (CBC) 1.4 K/uL (0.7-4.9); Absolute Monocytes 1.1 K/uL (0.1-1.3); Basophils % 0.5 % (0-1.3); Eosinophils % 2.9 % (0-4.4); Hematocrit 33.1 % (36.0-45.0); Lymphocytes % 20.9 % (15.3-44.8); MCH 29.1 pg (27.0-35.0); MCV 82.4 fL (80-100); MPV 7.6 fL (7.6-11.3); Monocytes % 15.7 % (3.3-12.3); RBC Red Blood Cell Count 4.02 M/uL (3.86-4.86)
[2018-06-16 08:33] LABS: Blood Morphology Comment NOT SEEN (NOT SEEN); Platelet Estimate ADEQ
[2018-06-16] MEDS: LOSARTAN/HCTZ 50-12.5 PO SCH (08:49)
[2018-06-16] MEDS: GABAPENTIN 300 MG CAP PO SCH ×2 (08:51→13:36)
[2018-06-16] MEDS: HYDRALAZINE HCL 25 MG TABLET PO SCH (08:52)
[2018-06-16] MEDS: MAGNESIUM OXIDE 400 MG TAB PO SCH (08:52)
[2018-06-16] MEDS: APIXABAN 5 MG TABLET PO SCH (08:53)
[2018-06-16] MEDS: ASPIRIN 81 MG CHEWABLE TABLET PO SCH (08:53)
[2018-06-16] MEDS: TRAMADOL HCL 50 MG TAB PO SCH ×2 (08:54→13:35)
[2018-06-16] MEDS: POTASSIUM CL SA 10 MEQ TAB PO SCH (08:54)
[2018-06-16] MEDS: GUAIFENESIN/DM 5 ML UCUP PO PRN (08:55)
[2018-06-16] MEDS: FUROSEMIDE 40 MG/4 ML VIAL IV SCH (08:56)
[2018-06-16 11:24] VITALS: O2SAT 95
--- NOTE | 2018-06-16 14:34 | PN ---
Date of Progress Note: 06/15/2018 Ms. Jefferson had come in with pneumonia and elevated troponin. No cardiac symptoms, but then developed atrial fibrillation. She has been on Coreg at home 12.5 mg b.i.d. I added metoprolol 50 b.i.d. Sh e also was on Eliquis 5 b.i.d. She is in normal sinus rhythm today. No symptoms. We will continue her present regimen of beta-maria esther, Eliquis. No change in therapy and will continue to follow as ne [place]. NATHANAEL/SUNNI Voice ID: [id number] Report ID: [id number]
[2018-06-16] MEDS: Levofloxacin500mg IV 500 MG/100 ML BAG IV SCH (15:37)
[2018-06-16 17:12] VITALS: BP 131/58; TEMP 98.9
== END 2018-06-16 17:40 | disposition home or self-care (01) | DRG 871 ==
LOC: ER 08:41 → ERHOLD 11:06 → 4TH 11:56
PROVIDERS: ADMIT Internal Medicine; ATTEND Internal Medicine
DX: A41.9 Sepsis, unspecified organism (principal); J18.9 Pneumonia, unspecified organism; N39.0 Urinary tract infection, site not specified; Z88.0 Allergy status to penicillin; Z88.2 Allergy status to sulfonamides; G89.29 Other chronic pain; M54.40 Lumbago with sciatica, unspecified side; R06.00 Dyspnea, unspecified; I48.0 Paroxysmal atrial fibrillation; I11.0 Hypertensive heart disease with heart failure; I50.9 Heart failure, unspecified
CPT/HCPCS: 36415; 71045; 80048; 80076; 81003; 81015; 82962; 83605; 83690; 83735; 83880; 84132; 84145; 84443; 84484; 85025; 85610; 87040; 87077; 87086; 87088; 87186; 87804; 93005; 93306; 94640; 96365; 96367; 96372; 96375; 99285; J0456; J0696; J1160; J1650; J2405; J7030